=== PATIENT | female | born 1955 | race Caucasian/White ===

== ENCOUNTER 2020-06-25 09:39 | Outpatient (CLI) | payer MEDICARE, SELFPAY ==
--- NOTE | 2020-06-25 09:44 | MM_ITS ---
WS: [id number] SCREENING DIGITAL MAMMOGRAM WITH CAD HISTORY: SCREENING COMPARISON: None available. Bilateral CC and MLO views submitted. Computer aided detection analyzed. Breast composition: There are scattered areas of fibroglandular density. Asymmetry in the posterior R IGHT lateral breast measures 10 mm. Not definitely seen on the lateral projection. LEFT breast is unr emarkable. MM/[place] [id number] IMPRESSION: BI-RADS: 0-Incomplete: Need additional imaging evaluation FOLLOW UP: Need Additional Imaging RIGHT breast: Spot compression views (CC and MLO). True ML. Ultrasound to follo w if abnormality persists.
== END 2020-06-25 09:40 | disposition home or self-care (01) ==
PROVIDERS: Family Provider Internal Medicine; PCP Internal Medicine; Visit Provider Internal Medicine
DX: Z12.31 Encounter for screening mammogram for malignant neoplasm of breast (principal)
CPT/HCPCS: 77067

== ENCOUNTER 2022-09-02 11:48 | Outpatient (CLI) | payer MEDICARE, SELFPAY ==
--- NOTE | 2022-09-02 11:57 | MM_ITS ---
WS: [id number] BILATERAL SCREENING DIGITAL TOMOSYNTHESIS MAMMOGRAM WITH CAD HISTORY: SCREENING COMPARISON: 06/25/2020 and 11/12/2017 Bilateral CC and MLO views with tomosynthesis and synthetic mammography submitted. Computer aided det ection analyzed. Breast composition: There are scattered areas of fibroglandular density. No suspicious masses, microc alcifications or architectural distortion. Asymmetric soft tissue LEFT breast. Benign calcifications RIGHT breast. MM/[place] [id number] IMPRESSION: BI-RADS: 2-Benign FOLLOW UP: 1 Year Follow-up
== END 2022-09-02 11:49 | disposition home or self-care (01) ==
LOC: RAD 11:48
PROVIDERS: PCP Internal Medicine; Visit Provider Internal Medicine
DX: Z12.31 Encounter for screening mammogram for malignant neoplasm of breast (principal)
CPT/HCPCS: 77063; 77067

== ENCOUNTER 2023-07-18 20:46 | Emergency (ER) | payer MEDICARE, SELFPAY ==
--- NOTE | 2023-07-18 20:51 | XRR_ITS ---
PROCEDURE INFORMATION: Exam: XR Right Wrist Exam date and time: 07/18/2023 9:20 PM Age: 67 years old Clinical indication: Injury or trauma; Fall; Patient HX: RT wrist pain/deformity post foosh TECHNIQUE: Imaging protocol: Radiologic exam of the right wrist. Views: 3 or more views. COMPARISON: No relevant prior studies available. FINDINGS: Bones/joints: Likely subtle distal ulnar fracture with minimal displacement. Markedly displaced and severely angulated distal radial fracture. The carpus is posteriorly displaced about 2.5 cm. This has a Colles orientation. Soft tissues: Advanced right wrist deformity and swelling. XR/XR wrist RT min 3V* [id number] IMPRESSION: Severe right wrist fracture-dislocation.
--- NOTE | 2023-07-18 20:54 | W.ED.UPPEXIN ---
Documented by User: INES Colmenares 07/18/23 22:34 HPI - Extremity Injury (Upper) General: Chief Complaint: Extremity Injury, Upper Stated Complaint: possible broke right hand Time Seen by Provider: 07/18/23 20:48 History of Present Illness: 67-year-old female comes in today for injury just prior to arrival to the right wrist. Patient reports slipping and falling striking her right knee on the ground and catching herself with outstretched arm. Patient has some swelling to the dorsal aspect of the wrist with deformity. Patient is able to move fingers. Patient has cap refill and good sensation. Review of Systems General: Reports: 10 or more systems reviewed and unremarkable except in HPI and below Musc: Reports: extremity pain and extremity swelling PFSH ED PFSH: Medical History Hypertension Surgical History No pertinent past surgical history Physical Exam Const: COMMON NORMALS: alert HENMT: COMMON NORMALS: normocephalic HEAD & SCALP: normocephalic Neck/C-Spine: COMMON NORMALS: full ROM Resp: COMMON NORMALS: normal respiratory effort Cardio: COMMON NORMALS: regular rate RATE: regular rate Back/Pelvis: COMMON NORMALS: thoracic and lumbar spine normal to inspection Extremity: RIGHT UPPER EXTREMITY: Yes wrist (Dinner fork deformity, pulses intact, sensation intact.) RIGHT LOWER EXTREMITY: Yes knee joint (Anterior abrasion normal range of motion) Neuro: SENSORIUM/ORIENTATION: Yes alert Skin: COMMON NORMALS: turgor normal GENERAL SKIN EXAM: turgor normal Course Vital Signs: Vital signs: Vital Signs Temperature 98.4 F 07/18/23 21:01 Pulse Rate 92 07/18/23 21:45 Respiratory Rate 18 07/18/23 21:45 Blood Pressure 205/96 07/18/23 21:45 Pulse Oximetry 94 07/18/23 21:01 Oxygen Delivery Me thod Nasal Cannula 07/18/23 21:45 MDM - Extremity Injury (Upper) Medical Decision Making Patient comes into her evaluation of a wrist injury that occurred just prior to arrival. On exam there is dinner fork deformity with positive pulses and prompt distal capillary refill. Sensation is intact. Differential diagnosis includes fracture, hematoma, dislocation. Discharge Plan Discharge Patient Disposition: Home Clinical Impression: Distal radius fracture, right Qualifiers: Encounter type: initial encounter Fracture type: closed Fracture morphology: unspecified fracture morphology Qualified Code(s): S52.501A - Unspecified fracture of the lower end of right radius, initial encounter for closed fracture Condition: Stable Prescriptions: New hydrocodone-acetaminophen 5-325 mg tablet 1 tab PO Q6H PRN (Reason: pain) Qty: 10 0RF No Action gabapentin 600 mg tablet 600 mg PO DAILY meloxicam 15 mg tablet 15 mg PO DAILY losartan 100 mg tablet 100 mg PO DAILY atorvastatin 20 mg tablet 20 mg PO DAILY Discharge Orders: Discharge ED (Routine); Ordered 07/18/23 Ordered By: Osman Mccray Referrals: Kamar Parisi DO [Physician] - 4-7 days Anjum Godinez DO [Primary Care Provider] - Discharge Diet: Usual diet Discharge Activity: Increase activity as tolerated Patient Instructions: Wrist Fracture in Adults (ED) Activity Restrictions/Additional Instructions: Keep splint clean and dry. Follow-up with orthopedics surgeon for further evaluation and treatment. Case management will contact you regarding follow-up appointment. Return to ED for new concerns. Coding Level of Care Code ED Arts Administrator for Chg Fwd Documented by User: Osman Mccray MD 07/18/23 21:57 HPI - Extremity Injury (Upper) General: Chief Complaint: Extremity Injury, Upper Stated Complaint: possible broke right hand Time Seen by Provider: 07/18/23 20:48 PFSH ED PFSH: Medical History Hypertension Surgical History No pertinent past surgical history Procedures Orthopedic Fracture Reduction Fracture #1: Time Out Performed: Yes Side: right Fracture Reduction Location: radius and ulna Analgesia: procedural sedation Technique: direct manipulation Post Reduction X-rays Demonstrate: anatomical reduction Post-reduction neuro exam: intact Post-reduction vascular exam: intact Splint Applied: Yes Patient Tolerated Procedure: well Procedural Sedation Indication: fracture/dislocation reduction ASA Class: I Time of Last PO Intake: 14:00 Preparation: color television console monitor applied and pulse oximeter IV Propofol dose (mg): 70 Patient Tolerated Procedure: well Complications: none Course Vital Signs: Vital signs: Vital Signs Temperature 98.4 F 07/18/23 21:01 Pulse Rate 92 07/18/23 21:45 Respiratory Rate 18 07/18/23 21:45 Blood Pressure 205/96 07/18/23 21:45 Pulse Oximetry 94 07/18/23 21:01 Oxygen Delivery Me thod Nasal Cannula 07/18/23 21:45 MDM - Extremity Injury (Upper) Medical Decision Making Patient comes into her evaluation of a wrist injury that occurred just prior to arrival. On exam there is dinner fork deformity with positive pulses and prompt distal capillary refill. Sensation is intact. Differential diagnosis includes fracture, hematoma, dislocation. Patient presents here with a distal right wrist fracture patient was sedated here and reduced she tolerated procedure well she stable for discharge we will prescribe her pain meds and get her follow-up with orthopedics. Medical Records I reviewed the patient's medical records. All radiology interpretation(s) finalized by discharge Discharge Plan Discharge Patient Disposition: Home Clinical Impression: Distal radius fracture, right Qualifiers: Encounter type: initial encounter Fracture type: closed Fracture morphology: unspecified fracture morphology Qualified Code(s): S52.501A - Unspecified fracture of the lower end of right radius, initial encounter for closed fracture Condition: Stable Prescriptions: New hydrocodone-acetaminophen 5-325 mg tablet 1 tab PO Q6H PRN (Reason: pain) Qty: 10 0RF No Action gabapentin 600 mg tablet 600 mg PO DAILY meloxicam 15 mg tablet 15 mg PO DAILY losartan 100 mg tablet 100 mg PO DAILY atorvastatin 20 mg tablet 20 mg PO DAILY Discharge Orders: Discharge ED (Routine); Ordered 07/18/23 Ordered By: Osman Mccray Referrals: Kamar Parisi DO [Physician] - 4-7 days Anjum Godinez DO [Primary Care Provider] - Discharge Diet: Usual diet Discharge Activity: Increase activity as tolerated Patient Instructions: Wrist Fracture in Adults (ED) Activity Restrictions/Additional Instructions: Keep splint clean and dry. Follow-up with orthopedics surgeon for further evaluation and treatment. Case management will contact you regarding follow-up appointment. Return to ED for new concerns. Coding Level of Care Code ED Arts Administrator for Radhika Kent
[2023-07-18 21:01] VITALS: BP 198/104; PULSE 96; RESP 16; TEMP 36.9; O2SAT 94
--- NOTE | 2023-07-18 21:37 | XRR_ITS ---
PROCEDURE INFORMATION: Exam: XR Right Wrist Exam date and time: 07/18/2023 9:47 PM Age: 67 years old Clinical indication: Pain; Other: RT wrist post reduction TECHNIQUE: Imaging protocol: Radiologic exam of the right wrist. Views: 1 or 2 views. COMPARISON: CR (UP EXM, ) 07/18/2023 9:20 PM FINDINGS: Tubes, catheters and devices: Splint has been placed. Bones/joints: Distal ulnar fracture is mildly displaced. Distal radial fracture is markedly improved in its alignment. There is decreased angulation and displacement. Soft tissues: Unchanged swelling. XR/XR wrist RT 2V [id number] IMPRESSION: Right wrist relocation with improving fracture alignment.
[2023-07-18 21:45] VITALS: BP 205/96; PULSE 92; RESP 18; O2SAT 95
[2023-07-18] MEDS: propofol 10 mg/mL SDV 20 mL 100 MG IVP (21:47)
--- NOTE | 2023-07-18 22:01 | PC.NURSE ---
Pt was administered 70mg of Propofol and the remaining 130mg was wasted with Ruchi Del Rio RN as the witness.
--- NOTE | 2023-07-18 22:23 | PC.NURSE ---
Pt sent home with 2tabs [place] 5-325 per INSTRUMENT TECHNICIAN Lopez.
[2023-07-18] MEDS: bacitracin ointment Pkt 1 EACH TOPICAL (22:28)
[2023-07-18 22:41] VITALS: BP 197/86; PULSE 85; RESP 18; O2SAT 96
--- NOTE | 2023-07-18 23:23 | DCPLANNER ---
Message sent to ortho for a follow up appointment for a wrist fx.
== END 2023-07-18 22:34 | disposition home or self-care (01) ==
PROVIDERS: Emergency Provider Emergency Medicine; PCP Internal Medicine
DX: S52.501A Unspecified fracture of the lower end of right radius, initial encounter for closed fracture (principal); I10 Essential (primary) hypertension; W01.0XXA Fall on same level from slipping, tripping and stumbling without subsequent striking against object, initial encounter
CPT/HCPCS: 25605; 73100; 73110; 99285; J2704

== ENCOUNTER → 2023-07-22 12:57 | Outpatient (BNVA) | payer MEDICARE, SELFPAY | PROVIDERS: PCP Internal Medicine; Visit Provider Physician Assistant | DX: S52.501A Unspecified fracture of the lower end of right radius, initial encounter for closed fracture (principal); S52.611A Displaced fracture of right ulna styloid process, initial encounter for closed fracture; W10.9XXA Fall (on) (from) unspecified stairs and steps, initial encounter; Z46.89 Encounter for fitting and adjustment of other specified devices; S52.501D Unspecified fracture of the lower end of right radius, subsequent encounter for closed fracture with routine healing; X58.XXXD Exposure to other specified factors, subsequent encounter | CPT/HCPCS: 25600; 73110; 99205; L3908 ==

== ENCOUNTER 2023-07-22 15:10 | Outpatient (CLI) | payer MEDICARE, SELFPAY | END 2023-07-22 15:11 | disposition home or self-care (01) | LOC: SPT 15:10 | PROVIDERS: PCP Internal Medicine; Visit Provider Physician Assistant | DX: Z46.89 Encounter for fitting and adjustment of other specified devices (principal); S52.501D Unspecified fracture of the lower end of right radius, subsequent encounter for closed fracture with routine healing; X58.XXXD Exposure to other specified factors, subsequent encounter | CPT/HCPCS: L3908 ==

== ENCOUNTER 2023-07-28 10:03 | Day surgery (SDC) | payer MEDICARE, SELFPAY ==
[2023-07-28] VITALS (11 sets, daily range): BP systolic 146–185; BP diastolic 67–87; PULSE 71–95; RESP 16–18; TEMP 36.1–36.8; O2SAT 92–100; BMI 31.0
--- NOTE | 2023-07-28 | XR_ITS ---
WS: [id number] C-ARM RADIOGRAPHS RIGHT WRIST; 2 IMAGES HISTORY: DENNIS PICS COMPARISON: 07/22/2023 Intraoperative plate and screw fixation of the distal radial fracture now in good position and alignm ent. Avulsion fracture ulnar styloid. IMPRESSION: Intraoperative fixation distal radial fracture.
[2023-07-28] MEDS: acetaminophen 1,000 MG/100 ML PIGGYBACK 400 MG IV (10:53)
[2023-07-28] MEDS: sodium chloride 0.9% 1,000 ML 30 ML IV (10:53)
[2023-07-28] MEDS: scopolamine 1.5 Patch 1 PATCH TRANSDERMA (10:54)
[2023-07-28] MEDS: ketorolac 30 mg/mL INJ IVP (10:54)
[2023-07-28 11:14] LABS: Glucose Point of Care 45 mg/dL (70-110)
[2023-07-28 11:14] LABS: Glucose Point of Care 52 mg/dL (70-110)
--- NOTE | 2023-07-28 11:21 | W.PM.OPSUD ---
Surgery/Procedure H&P Update DATE OF PROCEDURE: July 28, 2023 DATE H&P PERFORMED: 07/22/23 H&P UPDATE INFORMATION: I have reviewed H&P completed within last 30 days, I have examined patient prior to procedure and No changes to prior documentation PREOP DIAGNOSIS: Right distal radius fracture displaced intra-articular PRIMARY INDICATION FOR PROCEDURE: Right distal radius fracture displaced intra-articular PLANNED PROCEDURE: Operation Date: 07/28/23 11:55 Proposed Procedures p Right ORIF Wrist ORIF Distal Radius(Right) - Montana Gibson DO
[2023-07-28] MEDS: dextrose 50% syringe 50 mL 12.5 ML IVP (11:22)
[2023-07-28 11:42] LABS: Glucose Point of Care 76 mg/dL (70-110)
--- NOTE | 2023-07-28 11:42 | PC.NURSE ---
After 1/ amp D50, blood glucose 76. Dr notified. To Or at this time.
[2023-07-28] MEDS: ceFAZolin 2,000 MG in sodium chloride 0.9% (plus) 50 ML 100 MG IV (11:44)
--- NOTE | 2023-07-28 11:52 | ANES.PROC ---
Anesthesia Procedures Procedure/Date: 07/28/23 Nerve Block ^: Nerve Block 1: Main Anesthesia: general anesthesia Time Out Performed: Yes Consent: requested by attending/covering physician, from patient, risks and benefits reviewed and patient agrees to proceed Nerve block location: supraclavicular (right) Anesthesia monitors applied: pulse oximetry, EKG, BP cuff and oxygen Nerve block position: semi sitting Anesthetic Used: ropivicaine 0.5% Amount of anesthesia used (mL): 30 Ultrasound used to: recognize landmarks and visualize and ID brachial plexus Nerve Stimulator Used?: No Interscalene/Femoral BLK: 2 stimuplex 22 g needle used for position and inplane approach Injection: neg aspiration of heme Patient Tolerated Procedure: well Complications: none
--- NOTE | 2023-07-28 13:17 | P.OP_ITS ---
Operative Report Date of procedure: July 28, 2023 Surgeon: Montana Gibson DO Procedure: Preop Diagnosis ?Right?distal?radius fracture ? Procedure: Post-op diagnosis: Same, 4 part intra-articular Procedure done: Right?distal?radius open reduction internal fixation, 4-part intra-articular Implants: ?Arthrex right 3-hole standard volar locking plate Combination of locking and nonlocking screws 2.7 mm?distal Combination of locking and nonlocking screws 3.5 mm proximal Surgeon: Montana Gibson DO Anesthesia: General and nerve Block (Regional) Estimated blood loss: 10 mL Tourniquet time: 54 minutes IV fluids: 1100mL Complications: None Findings: See operative report narrative Condition: stable Disposition: same day Brief History: Patient is a 67year-old female who presented to my office for a [id number] right?distal?radius fracture.? Patient has significant comminution and shortening as well as dorsal angulation patient active and at this point time through shared decision making patient like to proceed with a right?distal?radius ORIF.? We had a detailed discussion in the office about nonoperative and operative intervention.? At this point time I feel through shared decision? best option would be open reduction internal fixation she is active and already has a considerable deformity?? as result through shared decision making patient would like to proceed with ORIF right?distal?radius fracture.? Detail the risk benefits complication alternatives to treatment option.? Understanding risk for surgery patient elects to proceed with surgical intervention.? All questions been answered at this time. Procedure: Patient seen and evaluated in the preoperative holding area.? Consent reviewed and signed with patient.? Correct extremities were marked and consent was reviewed and signed.? Patient was seen and evaluated by anesthesia department.? Underwent regional anesthesia. Once cleared for surgery pt was taken back to the operative suite.? Patient was then transported into the operative suite and kept on the OR gurney, all bony prominences well-padded patient was appropriate secured to bed in supine position.? An armboard was applied to the right upper extremity.? The right upper extremity had a nonsterile tourniquet applied.? Patient subsequently was then prepped and draped in standard orthopedic fashion she underwent anesthesia per the anesthesia department.? A final timeout was performed.? Patient received appropriate preoperative antibiotics. Esmarch was used exsanguinate the right upper extremity and tourniquet was insufflated to 250 mmHg. A standard modified FCR volar approach was performed to the right? distal?radius.? Sharp scalpel incision through skin and subcutaneous tissue.? I then switched to Littler dissection scissors identify the FCR tendon releases out of the sheath both proximally and?distally mobilized the tendon ulnarly and then subsequently incised the floor of the FCR tendon sheath with care to just incise the floor.? I then bluntly sweep the FPL tendon muscle belly ulnarly and placed blunt self-retaining retractor.? At this point time I direct visualization of the pronator quadratus which was incised in standard L fashion off the?radial and?distal?border in the?distal?radius and fracture site was scraped clean of interposed muscle belly.? I then identified the 4 part intra- articular?distal?radius fracture.? This was subsequently opened above and freed of interposing muscle belly as well as periosteum and fracture hematoma.? I did have to utilize my Antelope which was placed through the fracture pattern and disengage the fracture and performed manual manipulation and anatomic reduction of the?distal?radius fracture.? In order to have anatomic reduction I did release brachioradialis off of the radial column in order to reduce the radial styloid fracture fragment. ?Once satisfied with reduction and had appropriate anatomic reduction of the volar cortex.? This was confirmed with mini C arm in multiple orthogonal imaging.? At this point time? I selected a Arthrex anatomic?distal?radius plate utilizing a standard 3-hole plate which would have appropriate spread?distally.? This was then placed up to the?distal?radius while maintaining my reduction, pins were placed?distally and proximally to confirm appropriate placement of the plate along the?distal?radius.? Minor adjustments were made and once I was satisfied I then subsequently drilled a bicortical 3.5 screw proximally in the oblong hole to allow for appropriate sliding of the?distal?radius plate appropriately to perfect position on the?distal?radius.? This had excellent fixation and purchase and brought the plate to bone.? While maintaining my reduction I then confirmed in multiple orthogonal imaging that my plate was in appropriate position.? Once satisfied with my position I then subsequently placed the bernardo targeting guide on the?distal?locking screws with Arthrex.? The locking guide was then subsequently loaded and I subsequently drilled and placed a fully threaded cortical screw to compress the plate to bone for the?distal?fracture fragment.? This was performed with plan to then remove this and placed a shorter locking screw had bicortical fixation with excellent purchase and appropriate reduction of my volar tilt and bringing plate to bone of the?distal?fragment and plate.? Once I was satisfied with my plate position as well as reduction of the?distal?radius which was confirmed on AP oblique and lateral imaging I then subsequently drilled measured and placed 4 locking screws around this cortical screw.? Then I subsequently removed the cortical screw and placed a shorter locking screw that did not penetrate the dorsal cortex.?? This completed my?distal?fixation.? I did utilize mini C arm to confirm appropriate placement of the screws these were all within the?distal?radius and no joint involvement within the?radiocarpal joint or the DRUJ.? These had appropriate subchondral support and maintenance of reduction and fixation of the?distal?radius fracture.? ?I then turned my attention proximally and then I screwed in the locking guides for my final to screws proximally these were then subsequently drilled measured and appropriate length locking screws were then placed proximally with excellent fixation and locking technology into the plate.? This completed my construct.? The peek guide was subsequently removed and final imaging of the right?distal?radius open reduction internal fixation was taken of AP lateral as well and is orthogonal imaging.? I then took a inclination view which showed my?radial styloid screw was out of the penetration of the joint.? All my?d istal?screws were appropriate length did not penetrate dorsal cortex and did not penetrate the joint.? This completed my fixation.? Smooth wrist range of motion was then noted with no evidence of clicking. Wrist was then taken through pronation supination and stressed the DRUJ which was found to be stable.? The wound was then thoroughly irrigated.? Tourniquet was then subsequently deflated.? Hemostasis satisfactory with bipolar electrocautery.? I then subsequently placed interrupted 3-0 Vicryl sutures for subcutaneous tissue and then subsequently placed a nylon the skin for closure.? Incision was then dressed with Xeroform 4 x 4's Kerlix cast padding and a volar Ortho-Glass splint was then applied with Adolph wrap and placed in a sling.? Disposition: Patient taken to PACU in stable condition recovering well receive appropriate discharge instructions as well as pain medication postoperatively.? Maintain splint until follow-up.? Nonweightbearing to operative upper extremity We will follow-up with Dr. Gibson in the office in 2 weeks.? If any questions or concerns feel free to contact the office.
--- NOTE | 2023-07-28 13:17 | P.BOP_ITS ---
Date of Procedure: 07/28/2023 Surgeon: Montana Gibson DO Passenger Rate Clerk(s): None Procedure(s) performed: Right distal radius open reduction internal fixation four-part intra-articular Findings of the procedure(s): Right distal radius intra-articular fracture four- part underwent ORIF without any complications or issues Estimated blood loss: 10 mL Specimen(s) removed: None Post-operative diagnosis: Right distal radius fracture 4 part intra-articular
[2023-07-28 13:46] LABS: Glucose Point of Care 69 mg/dL (70-110)
--- NOTE | 2023-07-28 14:21 | P.ANESASSM_ITS ---
Pre-Anesthetic Assessment Height/Weight: Height 1.7 m Weight 89.811 kg Temp Pulse Resp BP Pulse Ox O2 Del Method O2 Flow Rate 98.2 F 91 18 160/87 92 Room Air 6 07/28/23 14:06 07/28/23 14:06 07/28/23 14:06 07/28/23 14:06 07/28/23 14:06 07/28/23 14:06 07/28/23 13:29 Preop Diagnosis: Right distal radius fracture displaced intra-articular Operation Date: 07/28/23 11:55 Proposed Procedures p Right ORIF Wrist ORIF Distal Radius(Right) - Montana Gibson DO Familial anesthetic complications: none Was Beta Jaden taken within 24 hours: N/A Was Clonidine taken within 24 hours: N/A Last intake: Intake Last Liquid Date 07/27/23 Last Liquid Time 13:00 Last Solid Date 07/27/23 Last Solid Time 13:00 Social Tobacco and No alcohol Exam alert, oriented x 3 and regular rate & rhythm Airway Submandibular: within normal limits Cervical ROM: within normal limits Mallampati: Class II Dentition: false Pulmonary Chronic Obstructive Pulmonary Disease CV/HEM Hypertension Metabolic Diabetes Mellitus and Morbid Ob[place] [facility] Osteoarthritis/DJD Neuropsych Anxiety and Depression Anesthetic Plan ASA status: 3 Anesthesia: General and Regional (specify below) (right supraclavicular blk) Medications/Allergies Home Medications Medication Instructions Recorded Confirmed Last Taken Type atorvastatin 20 mg tablet 20 mg PO DAILY 10/01/22 07/28/23 07/27/23 History gabapentin 600 mg tablet 600 mg PO DAILY 10/01/22 07/28/23 07/28/23 History losartan 100 mg tablet 100 mg PO DAILY 10/01/22 07/28/23 07/27/23 History meloxicam 15 mg tablet 15 mg PO DAILY 10/01/22 07/28/23 07/27/23 History hydrocodone 5 mg-acetaminophen 325 1 tab PO Q6H PRN pain #10 tabs 07/18/23 07/28/23 07/25/23 Rx mg tablet volar fast form #1 ea 07/22/23 07/28/23 Unknown Rx insulin degludec 200 unit/mL (3 See Rx Instructions .Route .COMPLEX 07/27/23 07/28/23 07/27/23 History mL) subcutaneous pen (Tresiba FlexTouch U-200 insulin) pen needle, diabetic 29 gauge x 07/27/23 07/28/23 Unknown History 1/2 (BD Ultra-Fine Original Pen Needle) sertraline 100 mg tablet 100 mg PO DAILY 07/27/23 07/28/23 07/28/23 History hydrocodone 5 mg-acetaminophen 325 1 tab PO Q6H PRN pain 5 days #20 07/28/23 Unknown Rx mg tablet tabs ondansetron 4 mg disintegrating 4 mg PO Q8H PRN nausea and 07/28/23 Unknown Rx tablet vomiting 3 days #9 tabs Allergies Allergy/AdvReac Type Severity Reaction Status Date / Time No Known Allergies Allergy Verified 07/28/23 10:41 Current Medications Generic Name Dose Route Start Last Admin Trade Name Freq PRN Reason Stop Dose Admin Sodium Chloride 1,000 mls @ 30 mls/hr 07/28/23 10:30 07/28/23 14:19 Sodium Chloride 0.9% IV 07/29/23 10:29 Infused .Q24H JAMES Infusion PFSH Anesthesia Medical History Hypertension Surgical History No pertinent past surgical history Data Anesthesia Cardiac Studies: No Data to Display
[2023-07-28 14:33] LABS: Glucose Point of Care 88 mg/dL (70-110)
--- NOTE | 2023-07-28 14:41 | PC.NURSE ---
Blood sugar 88 in phase 2, Dr Katie wilhelm to [facility]. Pt eating and drinking, tolerating well.
--- NOTE | 2023-07-28 16:31 | ANE.PACU2 ---
Inpatient post-anesthesia follow up: Airway intact: Yes Vital signs: Temperature 97.3 F Pulse Rate 95 Respiratory Rate 18 Blood Pressure 169/70 Pulse Oximetry 92 Oxygen Delivery Me thod Room Air Oxygen Flow Rate 6 Fraction of Inspir ed Oxygen Hydration adequate: Yes Nausea and vomiting: No Pain level: 1 Mental status: Baseline
== END 2023-07-28 14:44 | disposition home or self-care (01) ==
PROVIDERS: PCP Internal Medicine; Visit Provider Student in an Organized Health Care Education/Training Program
PROC: (CPT 25609; principal; 2023-07-28 11:45)
DX: S52.571A Other intraarticular fracture of lower end of right radius, initial encounter for closed fracture (principal); W19.XXXA Unspecified fall, initial encounter; J44.9 Chronic obstructive pulmonary disease, unspecified; I10 Essential (primary) hypertension; E11.9 Type 2 diabetes mellitus without complications; E66.01 Morbid (severe) obesity due to excess calories; Z68.31 Body mass index [BMI] 31.0-31.9, adult; Z79.4 Long term (current) use of insulin
CPT/HCPCS: 25609; 36416; 73100; 76000; 82962; C1713; J0131; J0690; J1885; J2250; J2371; J2405; J2704; J2795; J3010; J7030

== ENCOUNTER 2023-08-12 06:00 | Outpatient (RCR) | payer MEDICARE, SELFPAY | END 2023-08-25 23:59 | disposition home or self-care (01) | LOC: SOT 06:00 | PROVIDERS: Visit Provider Physician Assistant | DX: S52.501D Unspecified fracture of the lower end of right radius, subsequent encounter for closed fracture with routine healing (principal); X58.XXXD Exposure to other specified factors, subsequent encounter | CPT/HCPCS: 73110; 97022; 97110; 97140; 97166; 99024; L3906 ==

== ENCOUNTER → 2023-08-12 13:04 | Outpatient (BNVA) | payer MEDICARE, SELFPAY | PROVIDERS: PCP Internal Medicine; Visit Provider Physician Assistant | DX: Z98.890 Other specified postprocedural states; S52.501D Unspecified fracture of the lower end of right radius, subsequent encounter for closed fracture with routine healing; S52.611D Displaced fracture of right ulna styloid process, subsequent encounter for closed fracture with routine healing; X58.XXXD Exposure to other specified factors, subsequent encounter | CPT/HCPCS: 73110; 99024 ==

== ENCOUNTER 2023-08-26 06:00 | Outpatient (RCR) | payer MEDICARE, SELFPAY | END 2023-09-23 23:59 | disposition home or self-care (01) | LOC: SOT 06:00 | PROVIDERS: Visit Provider Physician Assistant | DX: Z47.89 Encounter for other orthopedic aftercare (principal) | CPT/HCPCS: 97022; 97110; 97140 ==

== ENCOUNTER → 2023-08-31 14:57 | Outpatient (BNVA) | payer MEDICARE, SELFPAY | PROVIDERS: Visit Provider Physician Assistant | DX: Z98.890 Other specified postprocedural states (principal); S52.501D Unspecified fracture of the lower end of right radius, subsequent encounter for closed fracture with routine healing; S52.613D Displaced fracture of unspecified ulna styloid process, subsequent encounter for closed fracture with routine healing; X58.XXXD Exposure to other specified factors, subsequent encounter | CPT/HCPCS: 73110; 99024 ==

== ENCOUNTER → 2023-09-14 15:17 | Outpatient (BNVA) | payer MEDICARE, SELFPAY | PROVIDERS: PCP Internal Medicine; Visit Provider Physician Assistant | DX: Z98.890 Other specified postprocedural states (principal); S52.501D Unspecified fracture of the lower end of right radius, subsequent encounter for closed fracture with routine healing; S52.611D Displaced fracture of right ulna styloid process, subsequent encounter for closed fracture with routine healing; X58.XXXD Exposure to other specified factors, subsequent encounter | CPT/HCPCS: 73110; 99024 ==

== ENCOUNTER → 2023-11-09 11:03 | Outpatient (BNVA) | payer MEDICARE, SELFPAY | PROVIDERS: PCP Internal Medicine; Visit Provider Student in an Organized Health Care Education/Training Program | DX: Z98.890 Other specified postprocedural states (principal); Z87.81 Personal history of (healed) traumatic fracture; Z48.89 Encounter for other specified surgical aftercare | CPT/HCPCS: 73110; 99213 ==

== ENCOUNTER 2024-05-11 13:10 | Outpatient (CLI) | payer MEDICARE, SELFPAY ==
--- NOTE | 2024-05-11 13:20 | MM_ITS ---
WS: [id number] BILATERAL SCREENING DIGITAL TOMOSYNTHESIS MAMMOGRAM WITH CAD HISTORY: SCREEN COMPARISON: 09/02/2022, 11/12/2017 Bilateral CC and MLO views with tomosynthesis and synthetic mammography submitted. Computer aided det ection analyzed. Breast composition: There are scattered areas of fibroglandular density. No suspicious masses, microc alcifications or architectural distortion. Scattered focal asymmetries in the LEFT breast are much mo re prominent than the RIGHT but stable. No areas of distortion. There are bilateral calcifications wh ich are scattered. MM/MM [facility] tomosynthesis [id number] IMPRESSION: BI-RADS: 2 - Benign. FOLLOW UP: 1 Year Follow-up
== END 2024-05-11 13:11 | disposition home or self-care (01) ==
LOC: MOBLMAM 13:12
PROVIDERS: PCP Internal Medicine; Visit Provider Internal Medicine
DX: Z12.31 Encounter for screening mammogram for malignant neoplasm of breast (principal); R92.323 Mammographic fibroglandular density, bilateral breasts; N64.89 Other specified disorders of breast; R92.1 Mammographic calcification found on diagnostic imaging of breast
CPT/HCPCS: 77063; 77067

== ENCOUNTER 2024-05-26 15:29 | Outpatient (CLI) | payer MEDICARE, SELFPAY ==
--- NOTE | 2024-05-26 15:32 | XR_ITS ---
WS: [id number] SCREENING DEXA SCAN [email or web address] CLINICAL INFORMATION: POSTMENOPAUSAL COMPARISON: None. FINDINGS: The L1-L4 bone mineral density measures 1.108 g/cm2. This corresponds to a T score score of -0.6 and Z score of 0.2. Left femoral neck bone mineral density measures 0.905 g/cm2. This corresponds to a T score of -0.8 an d Z score of -0.2. Right femoral neck bone mineral density measures 0.910 g/cm2. This corresponds to a T score -0.8of an d Z score of -0.1. Mean femoral neck bone mineral density measures 0.908 g/cm2. This corresponds to a T score of -0.8 an d Z score of -0.1. XR/XR DEXA axial skeleton* [id number] IMPRESSION: Normal bone mineralization. Patient's FRAX calculated 10 year probability for major osteoporotic fracture i s 16.1% and osteoporotic hip fracture is 3.5%.
== END 2024-05-26 15:30 | disposition home or self-care (01) ==
LOC: RAD 15:31
PROVIDERS: PCP Internal Medicine; Visit Provider Physician Assistant
DX: Z13.820 Encounter for screening for osteoporosis (principal); Z78.0 Asymptomatic menopausal state
CPT/HCPCS: 77080

== ENCOUNTER 2025-06-01 09:54 | Outpatient (CLI) | payer MEDICARE, MEDICAID, SELFPAY ==
--- NOTE | 2025-06-01 10:02 | MM_ITS ---
WS: [id number] BILATERAL SCREENING DIGITAL TOMOSYNTHESIS MAMMOGRAM WITH CAD HISTORY: SCREENING COMPARISON: 05/11/2024, 09/02/2022, 06/25/2020 Bilateral CC and MLO views with tomosynthesis and synthetic mammography submitted. Computer aided detection analyzed. Breast composition: There are scattered areas of fibroglandular density. No suspicious masses, microcalcifications or architectural distortion. Stable parenchymal pattern over multiple prior years. Benign calcifications in each breast. MM/MM [facility] tomosynthesis [id number] IMPRESSION: BI-RADS: 2 - Benign. FOLLOW UP: 1 Year Follow-up
== END 2025-06-01 09:55 | disposition home or self-care (01) ==
LOC: RAD 09:58
PROVIDERS: PCP Internal Medicine; Visit Provider Family Medicine
DX: Z12.31 Encounter for screening mammogram for malignant neoplasm of breast (principal); R92.323 Mammographic fibroglandular density, bilateral breasts; R92.1 Mammographic calcification found on diagnostic imaging of breast
CPT/HCPCS: 77063; 77067